=== PATIENT | male | born 1955 | race Caucasian/White ===

== ENCOUNTER 2018-08-21 06:03 | Day surgery (SDC) | payer OTHER ==
[2018-08-21] MEDS ORDERED: LACTATED RINGERS 500 ML IV ONE (06:25)
[2018-08-21] MEDS ORDERED: PHENYLEPHRINE 2.5% OPHTH 2 ML DROPS ONE (06:29)
[2018-08-21] MEDS ORDERED: KETOROLAC 0.45% OPHTH DROPS ONE (06:29)
[2018-08-21] MEDS ORDERED: PROPARACAINE 0.5% OPHTH DROPS 15 ML ONE (06:30)
[2018-08-21] MEDS ORDERED: CYCLOPENTOLATE 1% OPHTH DROPS 2 ML ONE (06:30)
[2018-08-21] MEDS ORDERED: KETOROLAC 0.45% OPHTH DROPS RIGHTEYE ONE (06:40)
[2018-08-21] MEDS ORDERED: PHENYLEPHRINE 2.5% OPHTH 2 ML DROPS RIGHTEYE ONE (06:40)
[2018-08-21] MEDS ORDERED: CYCLOPENTOLATE 1% OPHTH DROPS 2 ML RIGHTEYE ONE (06:40)
[2018-08-21] MEDS ORDERED: PROPARACAINE 0.5% OPHTH DROPS 15 ML RIGHTEYE ONE (06:40)
[2018-08-21] MEDS ORDERED: EPINEPHrine 1 MG/ML AMP ONE ×2 (07:00→07:02)
[2018-08-21] MEDS ORDERED: TRIAMCIN/MOXIFLOX OPHTHALMIC 0.6 ML VIAL IO ONE ×2 (07:02→07:32)
[2018-08-21] MEDS ORDERED: BRIMONIDINE 0.2% OPHTH DROPS 5 ML ONE (07:03)
[2018-08-21] MEDS ORDERED: TIMOLOL 0.5% OPHTH DROPS ONE (07:03)
[2018-08-21] MEDS ORDERED: VANCOMYCIN OPHTHALMI 8MG/0.8ML 8 MG/0.8 ML SYRINGE IO ONE ×2 (07:04→07:32)
[2018-08-21] MEDS ORDERED: BSS/LIDOCAINE/EPINEPHRINE 1 ML SYRINGE ONE (07:04)
--- NOTE | 2018-08-21 07:07 | ANESTHESIA ---
Pre-Anesthesia VS, & Labs - Diagnosis Right senile combined cataract - Procedure Right phaco with IOL implant Vital Signs: Temp Pulse Resp BP Pulse Ox 36.5 C 77 16 1342/86 H 98 08/21/18 06:28 08/21/18 06:28 08/21/18 06:28 08/21/18 06:28 08/21/18 06:28 Height 6 ft 3 in Weight (kg) 94 kg - NPO >8 hours, Other (Took Micardis, Nexium and 81 mg ASA) Home Medications and Allergies Home Medications: Ambulatory Orders Telmisartan/Hydrochlorothiazid [Micardis Hct 40-12.5 mg Tablet] 40 mg PO DAILY 08/20/18 Aspirin 81 mg PO DAILY 02/08/16 Esomeprazole Magnesium [Nexium] 40 mg PO DAILY 02/08/16 Simvastatin 10 mg PO DAILY 02/09/16 Telmisartan/Hydrochlorothiazid [Micardis Hct 40-12.5 mg Tablet] 40 mg PO DAILY 08/20/18 Allergies/Adverse Reactions: Allergies Allergy/AdvReac Type Severity Reaction Status Date / Time Penicillins Allergy Anaphylaxis Verified 02/08/16 13:45 Anes History & Medical History - Anesthetic History Anesthesia Complications: reports: No previous complications Family history of Anesthesia Complications: Denies Family history of Malignant Hyperthermia: Denies - Medical History Cardiovascular: reports: Hypertension Pulmonary: reports: Sleep apnea Gastrointestinal: reports: GERD Urinary: reports: None Neuro: reports: None Musculoskeletal: reports: None Endocrine/Autoimmune: reports: None Blood Disorders: reports: None Skin: reports: None Smoking Status: Current every day smoker Psychosocial: reports: Alcohol (1.5 pk/day for over 30 years) - Surgical History General: Colonoscopy Eyes Ears Nose Throat (EENT): Tonsil/Adenoidectomy Orthopedic: Arthroscopic surgery Exam General: Alert, Oriented x3, Cooperative Dental: WNL Mouth Openin Fingerbreadth Neck Mobility: Normal Mallampati classification: II Thyromental Distance: 4-6 cm Respiratory: Lungs clear Cardiovascular: Regular rate Neurological: Normal speech Mental/Cognitive Status: Alert/Oriented X3 Cognitive Status: Within normal limits Plan Anesthesia Type: MAC Consent for Procedure(s) Verified and Reviewed: Yes Code Status: Attempt Resuscitation ASA classification: 2-Mild systemic disease Is this case an emergency?: No
[2018-08-21] MEDS ORDERED: fentaNYL 100 MCG/2 ML VIAL IVP ONE (07:30)
[2018-08-21] MEDS ORDERED: MIDAZOLAM 2 MG/2 ML VIAL IVP ONE (07:30)
[2018-08-21] MEDS ORDERED: EPINEPHrine 1 MG/ML AMP IVP ONE (07:32)
[2018-08-21] MEDS ORDERED: CHONDR SULF/HYALURONATE SYRINGE IO ONE ×2 (07:32)
[2018-08-21] MEDS ORDERED: BSS/LIDOCAINE/EPINEPHRINE 1 ML SYRINGE IO ONE ×2 (07:32→07:34)
[2018-08-21] MEDS ORDERED: TIMOLOL 0.5% OPHTH DROPS OPTH ONE (07:32)
[2018-08-21] MEDS ORDERED: BRIMONIDINE 0.2% OPHTH DROPS 5 ML OPTH ONE (07:32)
[2018-08-21 08:08] VITALS: BP 138/85
--- NOTE | 2018-08-21 09:43 | OPERATIVE REPORT ---
DATE OF SERVICE: 08/21/2018 Physician: Tanvir Barron MD PREOPERATIVE DIAGNOSIS: Visually significant cataract, right eye. This was his first cataract surgery. POSTOPERATIVE DIAGNOSIS: Visually significant cataract, right eye. This was his first with surgery. DESCRIPTION OF PROCEDURE: Phacoemulsification with posterior chamber intraocular lens implant, right eye. SURGEON: Tanvir Barron MD ANESTHESIA: Monitored anesthesia care. COMPLICATIONS: None. 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 Best corrected visual acuity was 20/80 with glare to hand motion vision in the right eye. Indications for surgery are overall decrease in vision, difficulty seeing words on the computer screen, difficulty reading, difficulty seeing street signs, difficulty driving in low light or at night, difficulty driving at night because of headlights from other vehicles, difficulty with glare or bright lights in any situation, and decreased acuity with firearms. He was consented at length concerning the risks and benefits of cataract surgery, after which he expressed a desire to proceed with surgery. OPERATIVE PROCEDURE: Patient was taken to OR #3 and placed under monitored anesthesia care. A surgical timeout was conducted confirming the correct patient, correct procedure, and correct surgical site. He was given topical anesthesia and then prepped and draped in the usual sterile fashion. The eye was entered at the 12 and 9 o'clock positions. Intracameral Shugarcaine was injected into the anterior chamber, followed by Viscoat. A continuous-tear curvilinear capsulorrhexis was performed. The nucleus was hydrodissected and phacoemulsified. The cortex was attempted to be evacuated with infusion and aspiration (I&A); however, the cortex was very rubbery and very adhesive to the capsule so it came out of the eye with great difficulty. I got about 70% of the cortex off of the capsule but all the tension on the cortex ruptured the posterior capsule. No vitreous presented and the rupture was small but I still elected to use the 3-piece IOL in the sulcus. Provisc was injected into the sulcus behind the iris and a 15.5 diopter [id number], 3-piece intraocular lens was inserted into the sulcus and the optic put into rhexis capture. I&A was then used to evacuate the rest of the viscoelastic materials. Approximately 0.8 mL mixture of triamcinolone, moxifloxacin, and vancomycin was injected subconjunctivally in the superior quadrant for infection and inflammation prophylaxis. The eye was inflated to physiologic pressure using balanced salt solution and found to be watertight. There was a plate of cortex (almost a quadrant) superotemporally remaining behind the IOL that will need to be trimmed later with laser. This was explained to the patient in the postoperative unit. I explained that his vision would likely still be cloudy until a laser can be used in the clinic to improve his vision. He expressed understanding. TD: 08/21/2018 08:47 KIYA
== END 2018-08-21 06:04 | disposition home or self-care (01) ==
LOC: SDS 06:03
PROVIDERS: ATTEND Ophthalmology
PROC: 08RK3JZ Replacement of Left Lens with Synthetic Substitute, Percutaneous Approach (ICD-10-PCS; principal; 2018-08-21 07:30)
DX: E11.36 Type 2 diabetes mellitus with diabetic cataract (principal); I10 Essential (primary) hypertension; F17.200 Nicotine dependence, unspecified, uncomplicated; G47.30 Sleep apnea, unspecified; K21.9 Gastro-esophageal reflux disease without esophagitis; Z79.82 Long term (current) use of aspirin
CPT/HCPCS: 66984; A9270; J3490; V2632

== ENCOUNTER 2018-09-04 07:16 | Day surgery (SDC) | payer OTHER ==
[~2018-09-04 07:16] MED LIST: CYCLOPENTOLATE 1% OPHTH DROPS 2 ML ONE; KETOROLAC 0.45% OPHTH DROPS ONE; PHENYLEPHRINE 2.5% OPHTH 2 ML DROPS ONE; PROPARACAINE 0.5% OPHTH DROPS 15 ML ONE
[2018-09-04] MEDS ORDERED: TRIAMCIN/MOXIFLOX OPHTHALMIC 0.6 ML VIAL IO ONE ×2 (07:17→08:18)
[2018-09-04] MEDS ORDERED: BRIMONIDINE 0.2% OPHTH DROPS 5 ML ONE (07:17)
[2018-09-04] MEDS ORDERED: TIMOLOL 0.5% OPHTH DROPS ONE (07:18)
[2018-09-04] MEDS ORDERED: BSS/LIDOCAINE/EPINEPHRINE 1 ML SYRINGE ONE (07:18)
[2018-09-04] MEDS ORDERED: VANCOMYCIN OPHTHALMI 8MG/0.8ML 8 MG/0.8 ML SYRINGE IO ONE ×2 (07:18→08:18)
[2018-09-04] MEDS ORDERED: PHENYLEPHRINE 2.5% OPHTH 2 ML DROPS LEFTEYE ONE (07:30)
[2018-09-04] MEDS ORDERED: PROPARACAINE 0.5% OPHTH DROPS 15 ML LEFTEYE ONE ×2 (07:30→08:03)
[2018-09-04] MEDS ORDERED: KETOROLAC 0.45% OPHTH DROPS LEFTEYE ONE (07:30)
[2018-09-04] MEDS ORDERED: CYCLOPENTOLATE 1% OPHTH DROPS 2 ML LEFTEYE ONE (07:30)
[2018-09-04] MEDS ORDERED: LACTATED RINGERS 500 ML IV ONE (07:35)
--- NOTE | 2018-09-04 07:45 | ANESTHESIA ---
Pre-Anesthesia VS, & Labs - Diagnosis Left eye senile combined cataract - Procedure Left eye cataract extraction with IOL implant Vital Signs: Temp Pulse Resp BP Pulse Ox 36.6 C 80 20 154/78 H 98 09/04/18 07:27 09/04/18 07:27 09/04/18 07:27 09/04/18 07:27 09/04/18 07:27 Height 6 ft 3 in Weight (kg) 94.5 kg - NPO >8 hours - Lab Results Current Lab Results: Laboratory Tests 09/04/18 07:30: POC Whole Bld Glucose 131 H Home Medications and Allergies Aspirin 81 mg PO DAILY 02/08/16 Esomeprazole Magnesium [Nexium] 40 mg PO DAILY 02/08/16 Simvastatin 10 mg PO DAILY 02/09/16 Telmisartan/Hydrochlorothiazid [Micardis Hct 40-12.5 mg Tablet] 40 mg PO DAILY 08/20/18 Allergies/Adverse Reactions: Allergies Allergy/AdvReac Type Severity Reaction Status Date / Time Penicillins Allergy Anaphylaxis Verified 02/08/16 13:45 Anes History & Medical History - Anesthetic History Anesthesia Complications: reports: No previous complications - Medical History Cardiovascular: reports: Hypertension Pulmonary: reports: Sleep apnea (does not use cpap) Gastrointestinal: reports: GERD Urinary: reports: None Neuro: reports: None Musculoskeletal: reports: None Endocrine/Autoimmune: reports: None Blood Disorders: reports: None Skin: reports: None Smoking Status: Current every day smoker Psychosocial: reports: No issues indicated - Surgical History General: Colonoscopy Eyes Ears Nose Throat (EENT): Cataracts, Tonsil/Adenoidectomy Orthopedic: Arthroscopic surgery Exam General: Alert, Oriented x3, Cooperative, No acute distress Dental: WNL Mouth Openin Fingerbreadth Neck Mobility: Normal Mallampati classification: II Thyromental Distance: 4-6 cm Respiratory: Wheezing (inspiratory wheezing right lower lung base) Cardiovascular: Regular rate, Normal S1, Normal S2, No murmurs Mental/Cognitive Status: Alert/Oriented X3, Normal for patient Plan Anesthesia Type: MAC Consent for Procedure(s) Verified and Reviewed: Yes Code Status: Attempt Resuscitation ASA classification: 2-Mild systemic disease Is this case an emergency?: No
[2018-09-04] MEDS ORDERED: EPINEPHrine 1 MG/ML AMP IVP ONE (08:12)
[2018-09-04] MEDS ORDERED: CHONDR SULF/HYALURONATE SYRINGE IO ONE (08:12)
[2018-09-04] MEDS ORDERED: BRIMONIDINE 0.2% OPHTH DROPS 5 ML OPTH ONE (08:12)
[2018-09-04] MEDS ORDERED: TIMOLOL 0.5% OPHTH DROPS OPTH ONE (08:17)
[2018-09-04] MEDS ORDERED: BSS/LIDOCAINE/EPINEPHRINE 1 ML SYRINGE IO ONE ×2 (08:17)
[2018-09-04 08:55] VITALS: BP 120/60
[2018-09-04] MEDS ORDERED: LIDOCAINE-MPF 2% 5 ML VIAL IM ONE (09:00)
[2018-09-04] MEDS ORDERED: fentaNYL 100 MCG/2 ML VIAL IVP ONE (09:00)
[2018-09-04] MEDS ORDERED: MIDAZOLAM 2 MG/2 ML VIAL IVP ONE (09:00)
--- NOTE | 2018-09-04 11:14 | OPERATIVE REPORT ---
DATE OF SERVICE: 09/04/2018 Physician: Tanvir Barron MD 09/15/2018 PREOPERATIVE DIAGNOSIS: Visually significant cataract, left eye. Cataract surgery was pe rformed on the right eye on 08/21/2018. POSTOPERATIVE DIAGNOSIS: Visually significant cataract, left eye. Cataract surgery was performed on the right eye on 08/21/2018. PROCEDURE: Phacoemulsification with posterior chamber intraocular lens implant, left eye. SURGEON: Tanvir Barron MD ANESTHESIA: Monitored anesthesia care. COMPLICATIONS: None. OPERATIVE INDICATIONS: This is a 63-year-old man with progressive vision loss in the left eye due 2 to 3+ nuclear sclerotic and vacuolar cataract. Best corrected visual acuity was 20/40, with glare to hand motion in the left eye. Indications for surgery were difficulty seeing words on a computer scr een, difficulty seeing street signs, difficulty driving in low light or night, and difficulty driving at night because of headlights from other vehicles, also difficulty tracking a golf ball. He was co nsented at length concerning risks and benefits of cataract surgery, after which he expressed a brenda e to proceed with surgery. OPERATIVE PROCEDURE: The patient was taken to OR #3 and placed under monitored anesthesia care. Saeid gical timeout was conducted confirming the correct patient, correct procedure, and correct surgical s ite. He was given topical anesthesia and then prepped and draped in the usual sterile fashion. The eye was entered at the 6 and 3 o'clock positions. Intracameral Shugarcaine was injected into the ant erior chamber, followed by Viscoat. A continuous-tear curvilinear capsulorrhexis was performed. The nucleus was hydrodissected and phacoemulsified. Cortex was evacuated using automated infusion and a spiration. Provisc was injected into the capsular bag, and a 17.0 diopter intraocular lens inserted in the bag. Approximately 0.8 mL of a mixture of triamcinolone, moxifloxacin, and vancomycin was inj ected subconjunctivally in the superior quadrant for infection and inflammation prophylaxis. I and A was used to evacuate the viscoelastic materials. The eye was inflated to physiologic pressure using balanced salt solution and found to be watertight. The patient was taken from the operating room in good condition and given postoperative instructions. TD: 09/04/2018 08:36
== END 2018-09-04 07:17 | disposition home or self-care (01) ==
LOC: SDS 07:16
PROVIDERS: ATTEND Ophthalmology
PROC: 08RK3JZ Replacement of Left Lens with Synthetic Substitute, Percutaneous Approach (ICD-10-PCS; principal; 2018-09-04 08:30)
DX: E11.36 Type 2 diabetes mellitus with diabetic cataract (principal); I10 Essential (primary) hypertension; G47.30 Sleep apnea, unspecified; K21.9 Gastro-esophageal reflux disease without esophagitis; F17.200 Nicotine dependence, unspecified, uncomplicated; Z79.82 Long term (current) use of aspirin
CPT/HCPCS: 66984; A9270; J3490; V2632